=== PATIENT | male | born 1995 | race Caucasian/White ===

== ENCOUNTER → 2023-11-25 10:02 | Outpatient (REF) | payer BC, SELFPAY | LOC: HWRAD 10:02 | PROVIDERS: ATTENDING PHYSICIAN Nurse Practitioner Family; FAMILY PHYSICIAN Physician Assistant Medical | DX: M79.18 Myalgia, other site (principal) | CPT/HCPCS: 72193; Q9967 ==

== ENCOUNTER 2023-11-26 06:43 | Day surgery (SDC) | payer BC, SELFPAY ==
[2023-11-26 11:04] VITALS: BMI 28.6
[2023-11-26 11:11] VITALS: BP 150/75
[2023-11-26 13:10] VITALS: BP 136/59
[2023-11-26 13:11] VITALS: BP 136/59
[2023-11-26 13:15] VITALS: BP 137/67
[2023-11-26 13:30] VITALS: BP 137/85
[2023-11-26 13:45] VITALS: BP 140/81
== END 2023-11-26 14:00 | disposition home or self-care (01) ==
LOC: SDS 06:43
PROVIDERS: ATTENDING PHYSICIAN Surgery
DX: K61.0 Anal abscess (principal)
CPT/HCPCS: 45990